=== PATIENT | male | born 1995 | race Caucasian/White ===

== ENCOUNTER 2016-09-12 16:52 | Emergency (ER) | payer OTHER ==
[2016-05-26 06:29] VITALS: BP 102/47
--- NOTE | 2016-09-12 17:21 | ED Physician Documentation ---
Skin Rash - HISTORIAN Historian: patient - HPI Stated Complaint: poss staph infection Chief Complaint: Skin Rash Onset: days ago Timing: worse Identified Cause?: Yes When Did Symptoms Start: 09/10/16 Where: school Context: Medication Exposure: none Further Comments: yes (21 year old male patient presents with multiple " infected hairs" over new tattoo. 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, states he noticed multiple infected hairs on Saturday, has become progressively worse.) - ROS CONST: none CVS/RESP: none EYES/ENT: none GI/: none MS/SKIN/LYMPH: none NEURO/PSYCH: none - PAST HX Past History: other (depression) Other History: none Surgeries/Procedures: No Immunizations: UTD Allergies/Adverse Reactions: Allergies Allergy/AdvReac Type Severity Reaction Status Date / Time No Known Allergies Allergy Verified 05/26/16 03:09 Home Medications: Ambulatory Orders Medication Instructions Recorded Escitalopram Oxalate [Lexapro] 5 mg PO 09/12/16 Mupirocin [Bactroban] 1 appl TP BID #1 tube 09/12/16 Sulfamethoxazole/Trimethoprim 1 each PO BID #20 tab 09/12/16 [Bactrim Ds] - SOCIAL HX Smoking History: non-smoker - FAMILY HX Family History: none - VITAL SIGNS Vital Signs: Vital Signs Temp Pulse Resp BP Pulse Ox 98.6 F 70 16 102/47 99 09/12/16 17:38 09/12/16 17:38 09/12/16 17:38 05/26/16 05:55 09/12/16 17:38 - REVIEWED ASSESSMENTS Nursing Assessment Reviewed: Yes Vitals Reviewed: Yes Progress - Progress Progress: Will treat with bactrim DS to cover MRSA. 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 Reviewed discharge instructed with patient. Including wound care and antibiotics. Educated on possible viral origin. Explained patient may need have po anti-viral after antibiotics. Skin Rash Physical Exam - EXAM General Appearance: no acute distress, alert Skin: warm,dry, lesion (right forearm; multiple folllicles with purulent drainage) Location: extremities (right forearm) Character: maculopapular Symptoms: warmth, tenderness Extremities: nml ROM, no edema Respiratory: no resp distress CVS: reg. rate & rhythm Abdomen: non-tender, no organomegaly, nml bowel sounds, no distention Neuro/Psych: oriented x3, CN's nml as tested, motor nml, sensation nml, mood/ affect nml Discharge Clincal Impression: Folliculitis Prescriptions: Mupirocin [Bactroban] 1 appl TP BID #1 tube Sulfamethoxazole/Trimethoprim [Bactrim Ds] 1 each PO BID #20 tab Referrals: Kaiden Magallon MD [Primary Care Provider] - 2 Days Home Medications: Ambulatory Orders Escitalopram Oxalate [Lexapro] 5 mg PO 09/12/16 Mupirocin [Bactroban] 1 appl TP BID #1 tube 09/12/16 Sulfamethoxazole/Trimethoprim [Bactrim Ds] 1 each PO BID #20 tab 09/12/16 Condition: Stable Decision to Admit: NO Decision Time: 17:21
== END 2016-09-12 17:27 ==
LOC: ED 16:52
DX: L73.9 Follicular disorder, unspecified (principal)
CPT/HCPCS: 99283